=== PATIENT | female | born 1985 | race American Indian/Alaskan Native ===

== ENCOUNTER 2017-08-17 10:34 | Emergency (ER) | payer MEDICAID, OTHER ==
[2017-08-17 11:23] LABS: BUN/Creatinine Ratio 22; Blood Urea Nitrogen 11 mg/dL (7-17); Calcium 9.1 mg/dL (8.4-10.2); Hemolysis Index 20
[2017-08-17 11:25] LABS: Basophils # (Auto) 0.1 K/mm3 (0.0-0.1); Basophils % (Auto) 1.3 % (0.0-1.8); Eosinophils # (Auto) 0.1 K/mm3 (0.0-0.4); Eosinophils % (Auto) 2.7 % (0.0-4.3); Hematocrit 45.9 % (30.3-42.9); Hemoglobin 15.2 gm/dl (10.1-14.3); Lymphocytes # (Auto) 2.1 K/mm3 (1.2-5.4); Lymphocytes % (Auto) 47.2 % (13.4-35.0); Mean Corpuscular HGB Conc 33 % (30-34); Mean Corpuscular Hemoglobin 33 pg (28-32); Mean Corpuscular Volume 98 fl (79-97); Monocytes # (Auto) 0.4 K/mm3 (0.0-0.8); Monocytes % (Auto) 7.9 % (0.0-7.3); Platelet Count 238 K/mm3 (140-440); Red Blood Count 4.68 M/mm3 (3.65-5.03); Red Cell Distribution Width 12.5 % (13.2-15.2)
--- NOTE | 2017-08-17 12:23 | Emergency Department Report ---
ED Abdominal Pain HPI - General Chief Complaint: Abdominal Pain Stated Complaint: LOWER ABDOMINAL PAIN Time Seen by Provider: 08/17/17 12:00 Source: patient Mode of arrival: Ambulatory Limitations: No Limitations - History of Present Illness Initial Comments: Patient is 32 years old female with past medical history of ectopic 5 years ago, the patient presented to the ER with left lower quadrant abdominal pain for the last few days. Patient stated that in July she had a positive test [facility] and immediate ultrasound and she was told that there was no baby was seen. Patient did not have any follow-up since then. Patient stated that she had bleeding 3 days ago stopped yesterday. She denied any nausea, vomiting or diarrhea. No fever. MD Complaint: abdominal pain -: days(s) Location: LLQ Radiation: none Migration to: no migration Severity scale (0 -10): 4 Quality: cramping Consistency: intermittent Associated Symptoms: denies other symptoms - Related Data Previous Rx's Medication Instructions Recorded Last Taken Type Promethazine [Phenergan] 25 mg PO Q6H PRN #14 tablet 02/16/14 Unknown Rx Sulfamethoxazole/Trimethoprim 1 each PO BID #14 tablet 02/16/14 Unknown Rx [Bactrim Ds] Allergies Allergy/AdvReac Type Severity Reaction Status Date / Time No Known Allergies Allergy Verified 02/15/14 23:30 ED Review of Systems ROS: Stated complaint: LOWER ABDOMINAL PAIN Other details as noted in HPI Comment: All other systems reviewed and negative Constitutional: denies: chills, fever Respiratory: denies: cough, orthopnea, shortness of breath, SOB with exertion Cardiovascular: denies: chest pain, palpitations Gastrointestinal: abdominal pain. denies: nausea, vomiting, diarrhea, constipation, hematemesis, melena, hematochezia Genitourinary: denies: urgency, dysuria, frequency, hematuria, discharge Neurological: denies: headache, weakness, numbness, paresthesias ED Past Medical Hx - Surgical History Additional Surgical History: Right fallopian tube from ectopic - Social History Smoking Status: Current Every Day Smoker - Medications Home Medications: Home Medications Medication Instructions Recorded Confirmed Last Taken Type Promethazine [Phenergan] 25 mg PO Q6H PRN #14 tablet 02/16/14 Unknown Rx Sulfamethoxazole/Trimethoprim 1 each PO BID #14 tablet 02/16/14 Unknown Rx [Bactrim Ds] ED Physical Exam - General Limitations: No Limitations General appearance: alert, in no apparent distress - Head Head exam: Present: atraumatic, normocephalic - Eye Eye exam: Present: normal appearance, PERRL - ENT ENT exam: Present: normal exam, normal orophraynx, mucous membranes moist - Neck Neck exam: Present: normal inspection, full ROM. Absent: tenderness, meningismus, lymphadenopathy, thyromegaly - Respiratory Respiratory exam: Present: normal lung sounds bilaterally. Absent: respiratory distress, wheezes, rales, rhonchi, stridor, chest wall tenderness, accessory muscle use, decreased breath sounds, prolonged expiratory - Cardiovascular Cardiovascular Exam: Present: regular rate, normal rhythm, normal heart sounds - GI/Abdominal GI/Abdominal exam: Present: soft, normal bowel sounds. Absent: distended, tenderness, guarding, rebound, rigid, organomegaly, mass, bruit, pulsatile mass , hernia - Extremities Exam Extremities exam: Present: normal inspection, full ROM, normal capillary refill - Back Exam Back exam: Present: normal inspection, full ROM. Absent: tenderness, CVA tenderness (R), CVA tenderness (L) - Neurological Exam Neurological exam: Present: alert, oriented X3, CN II-XII intact, normal gait - Skin Skin exam: Present: warm, intact, normal color. Absent: cyanosis ED Course Vital Signs 08/17/17 08/17/17 08/17/17 10:39 12:10 12:15 Temperature 98.5 F Pulse Rate 84 Respiratory 18 Rate Blood Pressure 121/76 127/73 O2 Sat by Pulse 100 100 100 Oximetry 08/17/17 08/17/17 08/17/17 12:30 12:45 13:01 Temperature Pulse Rate Respiratory Rate Blood Pressure 119/78 127/73 127/73 O2 Sat by Pulse 100 100 98 Oximetry 08/17/17 13:15 Temperature Pulse Rate Respiratory Rate Blood Pressure 119/78 O2 Sat by Pulse 100 Oximetry - Reevaluation(s) Reevaluation #1: 08/17/17 14:55 I thoroughly explained to the patient how current hCG result which is 41 and the need to repeat that test in 48 hours. I asked her to return to the ER in 48 hours for recheck or she can follow-up with her OB doctor for recheck. Patient understood and she stated that she will follow-up with her OB doctor. ED Medical Decision Making - Lab Data Result diagrams: 08/17/17 10:54 08/17/17 10:54 Critical care attestation.: If time is entered above; I have spent that time in minutes in the direct care of this critically ill patient, excluding procedure time. ED Disposition Clinical Impression: Abdominal pain affecting Disposition: DC-01 TO HOME OR SELFCARE Is pt being admited?: No Condition: Stable Instructions: Abdominal Pain in (ED) Additional Instructions: Follow up with your OB in 48 hours for repeat HCG which is currently is 41or return to the ER for recheck.
[2017-08-17 12:45] LABS: HCG Qualitative,Urine Positive (Negative)
[2017-08-17 14:07] LABS: Bilirubin,Urine NEG (Negative); Blood,Urine MOD (Negative); Color,Urine Yellow (Yellow); Protein,Urine <15 mg/dL mg/dL (Negative)
[2017-08-17 16:16] VITALS: BP 123/66
== END 2017-08-17 15:25 | disposition home or self-care (01) ==
LOC: ED 10:34
DX: O26.891 Other specified pregnancy related conditions, first trimester (principal); O99.330 Smoking (tobacco) complicating pregnancy, unspecified trimester; R10.32 Left lower quadrant pain; Z3A.01 Less than 8 weeks gestation of pregnancy
CPT/HCPCS: 36415; 80048; 81001; 81025; 84702; 84703; 85025; 99283

== ENCOUNTER 2018-04-03 15:33 | Emergency (ER) | payer SELFPAY ==
[2018-04-03 15:45] VITALS: BP 120/62
--- NOTE | 2018-04-03 16:33 | Emergency Department Report ---
Chief Complaint: Urogenital-Female Stated Complaint: PERIOD ON TO LONG Time Seen by Provider: 04/03/18 16:13 - HPI History of Present Illness: Ms. Gibbons presents with irregular vaginal bleeding for 3 weeks. NO pain. No other symptoms. MSE performed. Recommended home test and clinic referral. No acute emergent limb or life threatening condition exists which needs further stablization. MSE performed. - Exam Vital Signs: Vital Signs 04/03/18 15:38 Temperature 98.5 F Pulse Rate 101 H Respiratory 16 Rate Blood Pressure 120/62 O2 Sat by Pulse 100 Oximetry MSE screening note: Focused history and physical exam performed. Due to findings the following was ordered: ED Disposition for MSE Clinical Impression: DUB (dysfunctional uterine bleeding) Disposition: Z- MED SCREENING EXAM-LEFT Is pt being admited?: No Does the pt Need Aspirin: No Condition: Stable Instructions: Dysfunctional Uterine Bleeding (ED) Referrals: [facility] [place] [Outside] - 3-5 Days
== END 2018-04-03 16:35 | disposition left against medical advice (07) ==
LOC: ED 15:33
DX: N93.8 Other specified abnormal uterine and vaginal bleeding (principal)
CPT/HCPCS: 99282